=== PATIENT | female | born 1985 | race Caucasian/White ===

== ENCOUNTER 2016-12-19 07:56 | Emergency (ER) | payer OTHER ==
[~2016-12-19] VITALS: Ht 157.5 cm; Wt 79.4 kg
[2016-12-19] MEDS ORDERED: MAKENA250 MG/1 M SC (08:18)
[2016-12-19] MEDS ORDERED: METHADONE10 MG/1 M2 PO (08:19)
[2016-12-19 08:42] LABS: ABSOLUTE BASOPHIL COUNT 0 /CUMM (0.0-0.2); ABSOLUTE EOSINOPHIL COUNT 0.1 /CUMM (0.0-0.7); ABSOLUTE GRANULOCYTE CT 8.7 /CUMM (1.4-6.5); ABSOLUTE LYMPH COUNT 1.9 /CUMM (1.2-3.4); ABSOLUTE MONOCYTE COUNT 0.5 /CUMM (0.10-0.60); BASOPHIL % 0.4 % (0.0-2.0); EOSINOPHIL % 0.6 % (0-5); GRANULOCYTE % 77.6 % (42.2-75.2); HEMATOCRIT 32.5 % (37-47); MEAN CORPUSCULAR HGB 28.6 PG (27.0-31.0); MEAN CORPUSCULAR VOLUME 84.2 FL (81.0-99.0); MEAN PLATELET VOLUME 7.6 FL (7.4-10.4); PLATELET COUNT 170 /CUMM (130-400); RBC DISTRIBUTION WIDTH 14.1 % (11.5-14.5); RED BLOOD CELL CT 3.86 /CUMM (4.20-5.40); WHITE BLOOD CELL COUNT 11.2 /CUMM (4.8-10.8)
--- NOTE | 2016-12-19 08:50 | ED CARDIAC/CP/PALPITATIONS ---
History of Present Illness General Chief Complaint: Chest Pain Stated Complaint: CHEST PAIN , 20 WEEKS PREG Source: patient Exam Limitations: no limitations Vital Signs & Intake/Output Vital Signs & Intake/Output Vital Signs Date Time Temp Pulse Resp B/P Pulse O2 O2 Flow FiO2 Ox Delivery Rate 12/19 1434 98.0 94 20 96/54 100 Room Air 12/19 1249 97.5 97 20 119/69 100 Room Air ED Intake and Output 03/ 0000 12/19 1200 Intake Total 1000 Output Total Balance 1000 Intake, IV 1000 Patient 175 lb Weight Allergies Coded Allergies: No Known Drug Allergies (12/19/16) Reconcile Medications Hydroxyprogesterone Caproate ([place]) 250 MG/ML VIAL 1 INJ SC QFRI (Reported) Methadone HCl 10 MG/ML ORAL.CONC 95 MG PO DAILY RECOVERY (Reported) Triage Note: C/O CHEST PAIN SINCE LAST PM, WORSE WITH ACTIVITY, WALKING. STATES SHE IS 20 WEEKS , (GR 6,P1, MISCARRIAGE 3-4). DENIES SOB. STATES PAIN IS STEADY. Triage Nurses Notes Reviewed? 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 She is also feeling palpitations and occasional fast heartbeat. She has increased symptoms with exertion and she feels better at rest. She is a smoker. She denies any leg swelling or calf pain. She is on MEKANA, progesterone injection every week to prevent labor. No history of chest pain. No nausea no vomiting no cough no hemoptysis. No long car rides or plane rides, no history of PE or DVT, no cardiac history the family. No treatment thus far. She is currently on methadone 95 mg daily, she has not missed any doses (MOE LITTLE) Past History Travel History Traveled to [place] past 21 day No Medical History Any Pertinent Medical History? 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 No (MOE LITTLE) Review of Systems Review of Systems Constitutional: Reports: see HPI. EENTM: Reports: no symptoms. Respiratory: Reports: no symptoms. Cardiovascular: Reports: see HPI. GI: Reports: no symptoms. Genitourinary: Reports: no symptoms. Musculoskeletal: Reports: no symptoms. Skin: Reports: no symptoms. Neurological/Psychological: Reports: no symptoms. Hematologic/Endocrine: Reports: no symptoms. Immunologic/Allergic: Reports: no symptoms. All Other Systems: Reviewed and Negative (MOE LITTLE) Physical Exam Physical Exam Cardiovascular: regular rate/rhythm (HEART RATE 95) Comments: Well-developed well-nourished person in no acute distress HEENT: Normal EENT exam, extraocular motion intact, no nystagmus. Pupils equally round and reactive to light. Nose is atraumatic. Pharynx normal. No swelling or edema. Neck: Supple, no lymphadenopathy, normal range of motion without pain or tenderness Back: Nontender, no CVA tenderness. Full range of motion Cardiovascular: Regular rate and rhythms no murmurs, normal JVP Respiratory: Chest minimal tenderness in the sternal region. No respiratory distress. Breath sounds clear to auscultation bilaterally Abdomen: Gravid, Soft, nontender nondistended, no appreciable organomegaly. Normal bowel sounds. No ascites Extremity: No edema, no calf tenderness to palpation, normal and equal pulses. Neuro: Alert oriented x3, motor sensory normal, cranial nerves II through XII grossly intact. Skin: No appreciable rash on exposed skin, skin is warm and dry. Psych: Mood and affect is normal, memory and judgment is normal. Core Measures ACS in differential dx? Yes Severe Sepsis Present: No Septic Shock Present: No (MOE LITTLE) Progress Differential Diagnosis: AMI, aortic dissection, atrial fibrillation, cholecystitis, CHF/pulm edema, costochondritis, hyperkalemia, hypovolemia, hyperthyroid, hyperventilation, intracranial hemorrhage, musculoskeletal pain, myocarditis, pancreatitis, pericarditis, pneumonia, pneumothorax, PSVT, pulmonary embolism, PUD/GERD, PVCs/PACs, respiratory failure, rib fracture, sepsis, unstable angina, V-fib/V-Tach, WPW syndrome Plan of Care: Orders Procedure Date/time Status Regular Diet 12/19 D Active Diagnostic Imaging: Viewed by Me: Ultrasound. Discussed w/RAD: Ultrasound. Radiology Impression: PATIENT: WILLIAM SULLIVAN PRESENT AGE: 31 PATIENT ACCOUNT NO: [id number] : 85 LOCATION: [facility] ORDERING PHYSICIAN: MOE KEANE SERVICE DATE: 12/19/16 EXAM TYPE: US - US -EXT BILAT VENOUS DOPPLER EXAMINATION: US TRIPLEX LOWER EXTREMITY, BILATERAL CLINICAL INFORMATION: Bilateral lower extremity edema. COMPARISON: None TECHNIQUE: Color-flow triplex imaging with spectral analysis and compression Doppler were performed on the bilateral lower extremities. FINDINGS: Respiratory variation, normal compression and augmented flow are noted throughout the bilateral lower extremities. The visualized common femoral vein, superficial femoral vein, profunda femoral vein, popliteal vein and midcalf peroneal and posterior tibial venous segments show no evidence of deep venous thrombosis. There is no Mitchell's cyst. IMPRESSION: Normal triplex scan without evidence of deep venous thrombosis involving the bilateral lower extremities. DICTATED BY: HARINDER BARRETO MD DATE/TIME DICTATED:12/19/161041 TERMINAL MAKE UP OPERATOR:CHERELLE DATE/TIME TRANSCRIBED:12/19/16 Initial ED EKG: NSR, rate (99), nonspecific ST T wave chg (III) Rhythm Strip: normal sinus rhythm (HEART RATE VARIES 90-115) Comments: [facility] center RN at the bedside, heart tones 124 and variable via Doppler 1 L of normal saline given IV. We'll obtain labs, d-dimer and bilateral venous ultrasounds to evaluate for potential pulmonary embolism, discussed with Dr. Meek 12/19/2016 8:51:23 AM D-dimer elevated, discussed with Dr. Gregoria Rainey, she states the patient was told to go to [place] emergency department when she spoke to her this morning, she recommended cardiology eval in the emergency department and based on the recommendation she may require a PE study (VQ scan or CTA, it is our discretion her [facility]) Patient seen in the emergency department by Dr. Jackson, he concurs with plan to proceed with CTA as there is no other obvious cardiac findings. I discussed this with Dr. DEXTER from radiology, had a long discussion with patient regarding rest and benefits of CTA regards to radiation and contrast dye to the fetus. She understands and agrees to proceed with a CT scan Discussed with radiologist regarding CT scan, suboptimal study, no gross PE centrally. I reviewed this with Dr. Meek, I have then spoken to Dr. DEXTER regarding the reading who is the radiologist cushion stuffer today, he reviewed the CT scan and agreed no gross PE was found. I discussed with him the possibility of obtaining a VQ scan and we have agreed that this would likely be a low yield study at this time considering that the CTA was adequate in evaluating for any significant pulmonary embolism. I discussed this with Dr. Meek as well. We are comfortable having the patient discharged home, her heart rate is in the mid 90s and that she has no further chest pain on reevaluation. She was recommended to follow-up with script developer as outpatient if her tachycardia or chest pain symptoms should continue. If she is feeling worse, she should return to the emergency room immediately for reevaluation. She understands and agrees with plan (MOE LITTLE) Departure Departure Disposition: HOME OR SELF CARE Condition: Stable Clinical Impression Primary Impression: Tachycardia Referrals: EDA QUILES,BI Leslie Additional Instructions: Please follow up with script developer if you are having continued symptoms of elevated heart rate or any chest pain. Call your [facility] doctor to notify them of the emergency room findings today. Please return to the ER with worsening chest pain, shortness of breath, fever or flulike illness. Departure Forms: Customer Survey General Discharge Information (MOE LITTLE) PA/PLASTIC SURGERY TECHNICIAN Co-Sign Statement Statement: ED Attending supervision documentation- [X] I saw and evaluated the patient. I have also reviewed all the pertinent lab results and diagnostic results. I agree with the findings and the plan of care as documented in the PA's/PLASTIC SURGERY TECHNICIAN's documentation. [] I have reviewed the ED Record and agree with the PA's/PLASTIC SURGERY TECHNICIAN's documentation. [] Additions or exceptions (if any) to the PAs/PLASTIC SURGERY TECHNICIAN's note and plan are summarized below: [] (ANTOLIN QUILES,IGNACIA Alberto) Critical Care Note Critical Care Note Critical Care Time: non-applicable (MOE LITTLE) (IGNACIA MEEK MD)
--- NOTE | 2016-12-19 10:45 | ULTRASOUND REPORT ---
EXAMINATION: US TRIPLEX LOWER EXTREMITY, BILATERAL CLINICAL INFORMATION: Bilateral lower extremity edema. COMPARISON: None TECHNIQUE: Color-flow triplex imaging with spectral analysis and compression Doppler were performed on the bilateral lower extremities. FINDINGS: Respiratory variation, normal compression and augmented flow are noted throughout the bilateral lower extremities. The visualized common femoral vein, superficial femoral vein, profunda femoral vein, popliteal vein and midcalf peroneal and posterior tibial venous segments show no evidence of deep venous thrombosis. There is no Mitchell's cyst. IMPRESSION: Normal triplex scan without evidence of deep venous thrombosis involving the bilateral lower extremities.
--- NOTE | 2016-12-19 11:08 | Cons- Cardiology ---
EDA QUILES,[place] 12/19/16 1101: General Information and HPI Consulting Request Date of Consult: 12/19/16 Requested By: DIYA DELA CRUZ Reason for Consult: Tachycardia and elevated d-dimer in a 20 week high-risk female. Source of Information: patient Exam Limitations: no limitations History of Present Illness: The patient is a 31-year-old female, with a high risk 20 week because of multiple previous miscarriages. She was doing very well until last evening when she noted that her heart was pounding. She did not have any shortness of breath. She had some heaviness in the chest. She came to the emergency department this morning. She actually was supposed to go to [place], where she is being followed for her high-risk , but came here. The [facility] folks were contacted and recommended a cardiology evaluation here. So far she has elevated d-dimer and, normal EKG except for mild tachycardia, negative Doppler venous study of the legs. She is feeling a little better now but still is aware of her heart beating fast. She has no history of heart disease. Allergies/Medications Allergies: Coded Allergies: No Known Drug Allergies (12/19/16) Home Med List: Hydroxyprogesterone Caproate ([place]) 250 MG/ML VIAL 1 INJ SC QFRI (Reported) Methadone HCl 10 MG/ML ORAL.CONC 95 MG PO DAILY RECOVERY (Reported) Current Medications: Current Medications Sig/Jackson Start time Last Medication Dose Route Stop Time Status Admin Sodium Chloride 1,000 ML BOLUS ONE 12/19 0845 DC 12/19 IV 12/19 0944 0900 Review of Systems Review of Systems: She has no other complaints in the review of systems Past History Travel History Traveled to [place] past 21 day No Medical History 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 Surgical History Surgical History: non-contributory Psychosocial History ETOH Use: denies use Illicit Drug Use: denies illicit drug use Exam & Diagnostic Data Vital Signs and I&O Vital Signs Date Time Temp Pulse Resp B/P Pulse O2 O2 Flow FiO2 Ox Delivery Rate 12/19 1019 97.9 92 18 105/58 99 Room Air 12/19 0835 98 Room Air 12/19 0809 98.4 116 20 131/86 100 Room Air Intake & Output 12/19 1600 12/19 0800 12/19 0000 12/18 1600 12/18 0800 12/18 0000 Intake Total 1000 Output Total Balance 1000 Intake, IV 1000 Patient 175 lb Weight Physical Exam: She is a well-developed well-nourished young female in no acute distress HEENT exam is normal Chest is clear Heart reveals mild tachycardia with a soft systolic ejection murmur at the left sternal border. Abdomen is gravid Extremities good pulses no edema Labs/Rashad Results: Laboratory Tests 12/19 12/19 0835 0810 Chemistry Sodium (137 - 145 mmol/L) 139 Potassium (3.5 - 5.1 mmol/L) 4.0 Chloride (98 - 107 mmol/L) 106 Carbon Dioxide (22 - 30 mmol/L) 24 Anion Gap (5 - 16) 9 BUN (7 - 17 mg/dL) 7 Creatinine (0.5 - 1.0 mg/dL) 0.5 Estimated GFR (>60 ml/min) > 60 BUN/Creatinine Ratio (7 - 25 %) 14.0 Glucose (65 - 99 mg/dL) 97 Calcium (8.4 - 10.2 mg/dL) 9.1 Total Bilirubin (0.2 - 1.3 mg/dL) 0.3 AST (14 - 36 U/L) 95 H ALT (9 - 52 U/L) 275 H Alkaline Phosphatase (<127 U/L) 115 Troponin I (< 0.11 ng/ml) < 0.01 Upo-N-Papnhrcsxut Pept (<125 pg/mL) 87.7 Total Protein (6.3 - 8.2 g/dL) 6.9 Albumin (3.5 - 5.0 g/dL) 3.4 L Globulin (1.9 - 4.2 gm/dL) 3.5 Albumin/Globulin Ratio (1.1 - 2.2 %) 1.0 L Coagulation D-Dimer (70 - 232 ng/ml) 412 H Hematology CBC w Diff NO MAN DIFF REQ WBC (4.8 - 10.8 /CUMM) 11.2 H RBC (4.20 - 5.40 /CUMM) 3.86 L Hgb (12.0 - 16.0 G/DL) 11.0 L Hct (37 - 47 %) 32.5 L MCV (81.0 - 99.0 FL) 84.2 MCH (27.0 - 31.0 PG) 28.6 RDW (11.5 - 14.5 %) 14.1 Plt Count (130 - 400 /CUMM) 170 MPV (7.4 - 10.4 FL) 7.6 Gran % (42.2 - 75.2 %) 77.6 H Lymphocytes % (20.5 - 51.1 %) 16.9 L Monocytes % (1.7 - 9.3 %) 4.5 Eosinophils % (0 - 5 %) 0.6 Basophils % (0.0 - 2.0 %) 0.4 Absolute Granulocytes (1.4 - 6.5 /CUMM) 8.7 H Absolute Lymphocytes (1.2 - 3.4 /CUMM) 1.9 Absolute Monocytes (0.10 - 0.60 /CUMM) 0.5 Absolute Eosinophils (0.0 - 0.7 /CUMM) 0.1 Absolute Basophils (0.0 - 0.2 /CUMM) 0 PUBS MCHC (33.0 - 37.0 G/DL) 34.0 Urines Urine Color (YEL,AMB,STR) STRAW Urine Clarity (CLEAR) CLEAR Urine pH (5.0 - 8.0) 6.0 Ur Specific [place] (1.001 - 1.035) 1.010 Urine Protein (NEG,<30 MG/DL) NEG Urine Ketones (NEG) NEG Urine Nitrite (NEG) NEG Urine Bilirubin (NEG) NEG Urine Urobilinogen (0.1 - 1.0 EU/dl) 0.2 Ur Leukocyte Esterase (NEG) NEG Ur Microscopic EXAM NOT REQUIRED Urine Hemoglobin (NEG) NEG Urine Glucose (N MG/DL) NEG Diagnostic Data Other Results PATIENT: WILLIAM SULLIVAN PRESENT AGE: 31 PATIENT ACCOUNT NO: [id number] : 85 LOCATION: [facility] ORDERING PHYSICIAN: MOE KEANE SERVICE DATE: 12/19/16 EXAM TYPE: US - US-EXT BILAT VENOUS DOPPLER EXAMINATION: US TRIPLEX LOWER EXTREMITY, BILATERAL CLINICAL INFORMATION: Bilateral lower extremity edema. COMPARISON: None TECHNIQUE: Color-flow triplex imaging with spectral analysis and compression Doppler were performed on the bilateral lower extremities. FINDINGS: Respiratory variation, normal compression and augmented flow are noted throughout the bilateral lower extremities. The visualized common femoral vein, superficial femoral vein, profunda femoral vein, popliteal vein and midcalf peroneal and posterior tibial venous segments show no evidence of deep venous thrombosis. There is no Mitchell's cyst. IMPRESSION: Normal triplex scan without evidence of deep venous thrombosis involving the bilateral lower extremities. DICTATED BY: HARINDER BARRETO MD DATE/TIME DICTATED:12/19/161041 DRAW FIRE OPERATOR:CHERELLE DATE/TIME TRANSCRIBED:12/19/161041 CONFIDENTIAL, DO NOT COPY WITHOUT APPROPRIATE AUTHORIZATION. <Electronically signed in Other Vendor System> SIGNED BY: HARINDER BARRETO MD 12/19/16 1045 Assessment/Plan Assessment/Plan The patient presents with symptomatic tachycardia. This is sinus tachycardia. Her EKG is otherwise normal. She has elevated d-dimer and negative venous Doppler. The concern obviously is for pulmonary embolism. She is on progesterone injections which can cause excess clotting. We are recommending a CTA of the chest to rule out pulmonary emboli. This will be done with protection of the abdomen. If this is positive then the patient will likely be transferred to [place]. Consult Acknowledgment - Thank you for your consult request. IGNACIA DANGELO MD 12/19/16 1301: Assessment/Plan Consult Acknowledgment - Thank you for your consult request.
--- NOTE | 2016-12-19 14:28 | CT SCAN REPORT ---
EXAMINATION: CT ANGIOGRAM OF THE CHEST WITH AND WITHOUT CONTRAST (CT PULMONARY ANGIOGRAM FOR PE) CLINICAL INFORMATION: Evaluate for PE, CP, TACHY, 20W PREG. COMPARISON: Bilateral lower extremity deep venous Doppler study done earlier today. TECHNIQUE: Prior to contrast administration, noncontrast localization images were obtained. Subsequently, multidetector volumetric imaging was performed from the thoracic inlet to below the diaphragms following the administration of 98 mL Optiray 320 intravenous contrast. No contrast reaction reported. Sagittal, coronal, and MIP oblique sagittal reformatted images were obtained on the CT workstation, uploaded to PACS, and reviewed. DLP: 494.52 mGy-cm FINDINGS: QUALITY OF STUDY/CONTRAST BOLUS: Suboptimal. PULMONARY ARTERIES: No large central pulmonary embolism is present. Assessment of the segmental as well as the subsegmental pulmonary arterial tree is technically limited. THORACIC AORTA: No aneurysm or dissection. LUNG: No focal consolidation, nodules or masses. PLEURA: No pleural effusion or pneumothorax. MEDIASTINUM: Normal heart size. No pericardial effusion. No hilar or mediastinal lymphadenopathy. No evidence of septal bowing or right heart strain. CHEST WALL/AXILLA: No axillary or internal mammary lymphadenopathy. OSSEOUS STRUCTURES: No acute or suspicious osseous abnormality. UPPER ABDOMEN: Unremarkable. No reflux of contrast into the hepatic veins to suggest elevated right heart pressures. IMPRESSION: 1. Technically limited study due to suboptimal opacification of the pulmonary arterial tree. However, there is no large central pulmonary embolism identified. Assessment of the segmental as well as the subsegmental pulmonary arterial tree is technically limited. 2. Otherwise unremarkable study. This critical result was discussed with DIYA Sawyer at 2:10 PM on 12/19/2016 and it was ascertained that the content and urgency of the report was understood at the time of direct communication.
[2016-12-19 14:34] VITALS: BP 96/54
== END 2016-12-19 15:10 ==
LOC: ERH 07:56
PROVIDERS: Physician Assistant Surgical
DX: O99.332 Smoking (tobacco) complicating pregnancy, second trimester (principal); R00.0 Tachycardia, unspecified; Z3A.20 20 weeks gestation of pregnancy
CPT/HCPCS: 81003; 93005; 93010; 93970; 96360; 96361